=== PATIENT | male | born 1940 | race Caucasian/White ===

== ENCOUNTER 2018-03-06 07:20 | Outpatient (CLI) | payer MEDICARE, BC, SELFPAY ==
[2018-03-06 07:50] LABS: HCT 44.8 % (40.0-50.0); HGB 14.8 g/dL (13.5-17.5); Mean Corpuscular Hemoglobin 30.1 pg (27.0-33.0); Mean Corpuscular Volume 91.2 fL (80-95); Mean Platelet Volume 9.9 fL (8.0-11.0); Platelet Count 177 x1000/uL (130-400); RBC 4.91 m/cumm (4.50-6.00); RBC Distribution Width 13.8 % (11.8-14.1); White Blood Cell Count 6.44 k/cumm (4.4-10.8)
[2018-03-06 09:43] LABS: ALT 33 U/L (12-78); AST 25 U/L (15-37); Albumin 3.8 g/dL (3.4-5.0); Alkaline Phosphatase 68 U/L (46-116); Anion Gap 5.7 mmol/L (3-11); BUN 15 mg/dL (7-18); Bilirubin, Total 0.9 mg/dL (0.2-1.0); CO2 29.3 mmol/L (21.0-32.0); CREATININE 1.01 mg/dL (0.70-1.30); Calcium 8.9 mg/dL (8.5-10.1); Chloride 103 mmol/L (98-107); Cholesterol 148 mg/dL (50-200); Glucose 93 mg/dL (70-100); HDL Cholesterol 61 mg/dL (40-60); LDL CHOLESTEROL 77 mg/dL (<100); Potassium 4.2 mmol/L (3.5-5.1); Sodium 138 mmol/L (136-145); Total Protein 6.2 g/dL (6.4-8.2); Triglyceride 56 mg/dL (30-150)
== END 2018-03-06 07:40 ==
PROVIDERS: PCP Nurse Practitioner; Visit Provider Nurse Practitioner
DX: E78.5 Hyperlipidemia, unspecified (principal); M45.9 Ankylosing spondylitis of unspecified sites in spine
CPT/HCPCS: 36415; 80053; 80061; 83721; 85027

== ENCOUNTER 2019-04-20 08:59 | Outpatient (CLI) | payer MEDICARE, BC, SELFPAY ==
[2019-04-20 10:12] LABS: ALT 35 U/L (16-63); AST 25 U/L (15-37); Albumin 3.8 g/dL (3.4-5.0); Alkaline Phosphatase 79 U/L (46-116); Anion Gap 5.3 mmol/L (3-11); BUN 17 mg/dL (7-18); CO2 31.7 mmol/L (21.0-32.0); CREATININE 0.95 mg/dL (0.70-1.30); Calcium 9.1 mg/dL (8.5-10.1); Calculated LDL 174 mg/dL; Chloride 103 mmol/L (98-107); Cholesterol 248 mg/dL (<200); Glucose 91 mg/dL (74-106); HDL Cholesterol 58 mg/dL (40-60); Potassium 4.4 mmol/L (3.5-5.1); Sodium 140 mmol/L (136-145); Total Protein 6.7 g/dL (6.4-8.2); Triglyceride 83 mg/dL (<150)
== END 2019-04-20 09:19 ==
PROVIDERS: PCP Nurse Practitioner; Visit Provider Nurse Practitioner
DX: I10 Essential (primary) hypertension (principal); E78.5 Hyperlipidemia, unspecified
CPT/HCPCS: 36415; 80053; 80061

== ENCOUNTER 2019-09-26 18:51 | Emergency (ER) | payer MEDICARE, BC, SELFPAY ==
[2019-09-26 18:58] VITALS: BP 139/75; PULSE 92; RESP 20; TEMP 37.2; O2SAT 96
--- NOTE | 2019-09-26 19:30 | DI.RAD_ITS ---
EXAM: XR PORTABLE CHEST AP CLINICAL HISTORY: PUI, R/O pneumonia, viral illness TECHNIQUE: 2D digital imaging was performed. COMPARISON: No exams were available for comparison FINDINGS: MEDIASTINUM: Normal. HEART: Normal. PULMONARY VASCULATURE: Normal. LUNGS: Clear. PLEURAL SPACE: No pleural effusion or pneumothorax. BONE:Degenerative changes are present in the spine. OTHER FINDINGS:Normal. IMPRESSION: No acute pulmonary findings. DATA REPOSITORY: RADIATION DOSE DELIVERED:
--- NOTE | 2019-09-26 19:37 | ED.GENADUL_ITS ---
Discharge Plan Disposition Patient Disposition: HOME Condition: Stable Discharge Details Chief Complaint: Fever Clinical Impression: Tick bite Primary Care Provider: Valorie Jarvis ED Provider: Kenisha Chase Home Meds and New Rx's Prescriptions: New doxycycline hyclate 100 mg capsule 100 mg PO BID 10 Days Qty: 20 RF: 0 No Action Shingrix (PF) 50 mcg/0.5 mL suspension for reconstitution 50 mcg IM ONCE Qty: 1 RF: 1 multivitamin [Daily Vitamin] 1 EACH tablet 1 ea PO DAILY RF: 0 finasteride 5 mg tablet 5 mg PO DAILY RF: 0 indomethacin 25 mg capsule 25 mg PO TID PRN (Reason: pain) Qty: 90 RF: 3 lisinopril 10 mg tablet 10 mg PO DAILY Qty: 90 RF: 3 rosuvastatin [Crestor] 5 mg tablet 5 mg PO DAILY Qty: 90 RF: 3 sildenafil [Viagra] 50 mg tablet 50 mg PO DAILY PRN (Reason: sexual activity) Qty: 30 RF: 3 Discharge Instructions Instructions: Tick Bite (ED) Additional Instructions: Follow up with primary care provider in 3-5 days. Return to ED sooner if any worsening or concerns. Increase oral fluids. Please take Tylenol with food every 4-6 hours as needed for fever, pain and swelling. We did test for COVID-19 which is pending at this time. We do recommend that you quarantine for at least until you have a negative result for 3 to 5 days after symptoms have resolved. Am going to treat you for Lyme disease due to symptoms and history of multiple tick bites, and lab results. Stand Alone Forms: PENDING COVID-19 TESTING Referrals: Valorie Jarvis NP [Primary Care Provider] - Discharge Data Discharge Date/Time-TO BE ENTERED AT DEPARTURE: 09/26/19 21:55 Medical Decision Making 51-year-old male presents to the ED status post closed head injury followed by syncopal episode. Patient states 1 hour prior to arrival he was working with frontal, slammed the top of his head into a large branch, fell back to the ground states that everything went black unknown length of LOC. He presents alert and oriented x3, no focal neuro deficits noted. He states something just not right. He does have a history cardiac defibrillator, cardiomyopathy, congestive heart failure, diabetes, mitral regurgitation, PTSD and sleep apnea. Initial EKG obtained shows widened QRS in V1 V2 V3. Patient denies any chest pain, shortness of breath, does have pain with left lateral EOM. Does have a small abrasion noted to top of his head and a small hematoma surrounding. No palpable depressed skull fracture. 2117: At this time labs are as follows, WBC is 5.13, platelets 111, sodium 130, chloride 96, potassium 4.0, BUN 19, creatinine 1.01, AST 75, ALT 73 at this time differential diagnosis includes Lyme disease, COVID-19. Patient also shows signs of dehydration due to hyponatremia and low chloride. I will treat empirically for Lyme disease due to the patient's history of multiple tick bites, labs, and symptoms. Discussed home care with patient, medication, and follow-up. Verbalized understanding. Discussed strict return instructions. Patient given doxycycline 100 mg p.o. tablet in department prior to discharge. HPI General Mode of arrival: ambulatory . Date/Time Provider Initiated Documentation: 09/26/19 19:05 . Limitations to Documentation: no limitations . Information obtained by: patient . HPI Narrative: 51-year-old male presents to the ED status post closed head injury followed by syncopal episode. Patient states 1 hour prior to arrival he was working with frontal, slammed the top of his head into a large branch, fell back to the ground states that everything went black unknown length of LOC. He presents alert and oriented x3, no focal neuro deficits noted. He states something just not right. He does have a history cardiac defibrillator, cardiomyopathy, congestive heart failure, diabetes, mitral regurgitation, PTSD and sleep apnea. Initial EKG obtained shows widened QRS in V1 V2 V3. Patient denies any chest pain, shortness of breath, does have pain with left lateral EOM. Does have a small abrasion noted to top of his head and a small hematoma surrounding. No palpable depressed skull fracture. Related Data Home Medications Medication Instructions Recorded Confirmed multivitamin [Daily Vitamin] 1 ea PO DAILY 07/16/12 04/20/19 finasteride 5 mg tablet 5 mg PO DAILY 03/24/18 04/20/19 indomethacin 25 mg capsule 25 mg PO TID PRN #90 tab-cap 04/19/19 04/20/19 varicella-zoster gE-AS01B (PF) 50 50 mcg IM ONCE #1 each 04/20/19 04/20/19 mcg/0.5 mL IM susp, kit lisinopril 10 mg tablet 10 mg PO DAILY #90 tab 04/26/19 rosuvastatin 5 mg tablet 5 mg PO DAILY #90 tab-cap 04/26/19 sildenafil 50 mg tablet 50 mg PO DAILY PRN #30 tab-cap 05/17/19 doxycycline hyclate 100 mg PO BID 10 Days #20 cap 09/26/19 Previous Rx's Medication Instructions Recorded indomethacin 25 mg capsule 25 mg PO TID PRN #90 tab-cap 04/19/19 varicella-zoster gE-AS01B (PF) 50 50 mcg IM ONCE #1 each 04/20/19 mcg/0.5 mL IM susp, kit lisinopril 10 mg tablet 10 mg PO DAILY #90 tab 04/26/19 rosuvastatin 5 mg tablet 5 mg PO DAILY #90 tab-cap 04/26/19 sildenafil 50 mg tablet 50 mg PO DAILY PRN #30 tab-cap 05/17/19 doxycycline hyclate 100 mg PO BID 10 Days #20 cap 09/26/19 Allergies Allergy/AdvReac Type Severity Reaction Status Date / Time simvastatin AdvReac Intermediate leg pain Verified 09/26/19 19:06 General Stated Complaint: Fever MEL: 2 Review of Systems Narrative: Constitutional: Negative for weight loss, alert and oriented, well groomed, normal body habitus, appears comfortable. Reports fatigue, fever T-max 102, decreased appetite. HEENT: Denies trauma,blurry vision, nasal discharge, sore throat, trouble swallowing. Chest: Denies chest pain, palpitations, irregular rhythm, hypertension. Respiratory: Denies Shortness of breath, cough, hemoptysis. GI: Denies abdominal pain, diarrhea, constipation. Positive nausea 1 episode of emesis Friday night. : Denies dysuria, hematuria, flank pain, rectal bleeding. Reports decreased urination. Neuro: Denies dizziness, blurry vision, weakness, syncope,or facial numbness. Hematologic: Denies easy bruising, intolerance to heat or cold, hair loss. 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 Appears stated age. Normal body habitus. Head: Normocephalic, no trauma. Eyes: Pupils PERRLA, Red reflex noted, EOM's intact. Eyelids symmetrical without lesions, discharge, or swelling. ENT: Bilateral TM's WNL, External ear normal to inspection, no mastoid TTP, swelling, or erythema, Nasal turbinates WNL, no nasal discharge. Normal dentition, Posterior pharynx WNL, no exudate. Chest: RRR, Normal S1, S2, distal pulses intact. Resp: Lungs clear to auscultation bilaterally, no wheezes, rales, or rhonchi. Musculoskeletal: Normal gait, 5/5 strength to all four extremities. Skin: There is a few dry scab-like lesions noted to lower extremities, there is also a bulbar small approximately 3 mm blood blister noted to the right lateral neck, capillary refill less than 2 sec. Neurologic: Cranial nerves II-XII intact. Alert and oriented x 3. DTR's intact. Hematologic/Lymphatic: No ecchymosis, no lymphadenopathy. Course Vital Signs Vital signs: Vital Signs Temperature 37.2 C 09/26/19 18:58 Pulse 92 H 09/26/19 18:58 Respiratory Rate 20 09/26/19 18:58 Blood Pressure 139/75 09/26/19 18:58 Pulse Oximetry 96 09/26/19 18:58 Temperature 37.2 C 09/26/19 18:58 Temperature Source Oral 09/26/19 18:58 Pulse 92 H 09/26/19 18:58 Respiratory Rate 20 09/26/19 18:58 Respiratory Effort Non-Labored 09/26/19 19:06 Blood Pressure 139/75 09/26/19 18:58 Blood Pressure Position Sitting 09/26/19 18:58 Pulse Oximetry 96 09/26/19 18:58 Oxygen Delivery Method Room Air 09/26/19 18:58 Oxygen Flow Rate 0 09/26/19 18:58 Pain Level 0 09/26/19 18:58
[2019-09-26] MEDS: Normal Saline 1,000 ML 1000 ML IV (20:04)
[2019-09-26 20:06] LABS: Lactate 0.6 mmol/L (0.6-1.4)
[2019-09-26 20:09] LABS: Abs Immature Grans 0.01 k/cumm (0.0-0.09); Absolute Basophil Count 0.01 k/cumm (0.0-0.2); Absolute Eosinophil Count 0.02 k/cumm (0.0-0.7); Absolute Lymphocyte Count 0.29 k/cumm (1.2-3.4); Basophils % 0.2; Eosinophils % 0.4; HCT 40.5 % (40.0-50.0); HGB 13.9 g/dL (13.5-17.5); Immature Grans % 0.2 %; Lymphocytes % 5.7; Mean Corp. HGB Concentration 34.3 g/dL (32.0-36.0); Mean Corpuscular Hemoglobin 31.2 pg (27.0-33.0); Mean Corpuscular Volume 90.8 fL (80-95); Mean Platelet Volume 9.7 fL (8.0-11.0); Monocytes % 7.8; Neutrophils % 85.7; Platelet Count 111 x1000/uL (130-400); RBC 4.46 m/cumm (4.50-6.00); RBC Distribution Width 12.8 % (11.8-14.1); White Blood Cell Count 5.13 k/cumm (4.4-10.8)
[2019-09-26 20:27] LABS: ALT 73 U/L (16-63); AST 75 U/L (15-37); Albumin 3.4 g/dL (3.4-5.0); Alkaline Phosphatase 94 U/L (46-116); Anion Gap 10.2 mmol/L (3-11); BUN 19 mg/dL (7-18); Bilirubin, Total 0.7 mg/dL (0.2-1.0); CO2 23.8 mmol/L (21.0-32.0); CREATININE 1.01 mg/dL (0.70-1.30); Calcium 8.5 mg/dL (8.5-10.1); Chloride 96 mmol/L (98-107); Glucose 115 mg/dL (74-106); Magnesium 1.8 mg/dL (1.8-2.4); Sodium 130 mmol/L (136-145); Total Protein 6.5 g/dL (6.4-8.2)
--- NOTE | 2019-09-26 20:51 | DI.VRAD_ITS ---
PROCEDURE INFORMATION: Exam: XR Chest, 1 View Exam date and time: 09/26/2019 8:36 PM Age: 78 years old Clinical indication: Fever and other: Viral illness; Patient HX: R/O pneumonia, viral illness. PT being tested for covid and lyme TECHNIQUE: Imaging protocol: XR of the chest Views: 1 view. COMPARISON: No relevant prior studies available. FINDINGS: Lungs: Lungs are adequately inflated and symmetric. No focal consolidation or pulmonary edema. Pleural space: No pleural effusion. No pneumothorax. Heart/Mediastinum: Cardiomediastinal contours within normal limits. Vasculature: Vascular calcifications of the aortic arch with mild tortuosity of the descending thoracic aorta. Bones/joints: Moderate symmetric degenerative changes of the acromioclavicular joint. No acute osseous finding. IMPRESSION: No acute cardiopulmonary finding. Dictated and Authenticated by: Chi Kennedy MD. Ordering:QUIQUE De MD
[2019-09-26 20:54] VITALS: BP 142/65; PULSE 68; RESP 18; TEMP 37.7; O2SAT 96
[2019-09-26] MEDS: Doxycycline Hyclate 100 MG CAP PO (21:47)
[2019-09-26 21:57] VITALS: BP 145/63; PULSE 74; RESP 16; TEMP 37.4; O2SAT 97
[2019-09-28 12:09] LABS: Lyme Ab w Rflx to Lyme Confirm Negative (Negative)
[2019-09-28 12:27] LABS: COVID-19 RT-PCR Result NEGATIVE (Negative)
[2019-09-28 23:29] LABS: Anaplasma phagocytophilum Negative (Negative); B. miyamotoi PCR Negative (Negative); Babesia divergens/MO-1 Negative (Negative); Babesia duncani Negative (Negative); Babesia microti Negative (Negative); Ehrlichia chaffeensis Negative (Negative); Ehrlichia ewingii/canis Negative (Negative); Ehrlichia muris eauclairensis Negative (Negative)
== END 2019-09-26 21:55 | disposition home or self-care (01) ==
LOC: ER 21:42
PROVIDERS: Emergency Provider Registered Nurse Emergency; PCP Nurse Practitioner
DX: S10.96XA Insect bite of unspecified part of neck, initial encounter (principal); R50.9 Fever, unspecified; E86.0 Dehydration; Z11.59 Encounter for screening for other viral diseases
CPT/HCPCS: 36415; 80053; 87798; 96360; 99284; U0003; 71045; 83605; 83735; 85025; 86618

== ENCOUNTER 2019-10-18 01:48 | Outpatient (CLI) | payer MEDICARE, BC, SELFPAY ==
[2019-10-18 08:15] LABS: HCT 42.2 % (40.0-50.0); HGB 14.4 g/dL (13.5-17.5); Mean Corp. HGB Concentration 34.1 g/dL (32.0-36.0); Mean Corpuscular Hemoglobin 31.5 pg (27.0-33.0); Mean Corpuscular Volume 92.3 fL (80-95); Mean Platelet Volume 9.3 fL (8.0-11.0); Platelet Count 215 x1000/uL (130-400); RBC 4.57 m/cumm (4.50-6.00); RBC Distribution Width 13.1 % (11.8-14.1); White Blood Cell Count 5.02 k/cumm (4.4-10.8)
[2019-10-18 09:13] LABS: ALT 38 U/L (16-63); AST 27 U/L (15-37); Albumin 3.8 g/dL (3.4-5.0); Alkaline Phosphatase 97 U/L (46-116); Anion Gap 8.6 mmol/L (3-11); BUN 15 mg/dL (7-18); Bilirubin, Total 0.8 mg/dL (0.2-1.0); CO2 25.4 mmol/L (21.0-32.0); CREATININE 0.92 mg/dL (0.70-1.30); Calculated LDL 82 mg/dL (<100); Chloride 103 mmol/L (98-107); Cholesterol 154 mg/dL (<200); Glucose 98 mg/dL (74-106); HDL Cholesterol 62 mg/dL (40-60); Potassium 4.5 mmol/L (3.5-5.1); Sodium 137 mmol/L (136-145); Total Protein 6.3 g/dL (6.4-8.2); Triglyceride 52 mg/dL (<150)
== END 2019-10-18 02:08 ==
PROVIDERS: PCP Nurse Practitioner; Visit Provider Nurse Practitioner
DX: E78.5 Hyperlipidemia, unspecified (principal); I10 Essential (primary) hypertension; M45.9 Ankylosing spondylitis of unspecified sites in spine; R79.9 Abnormal finding of blood chemistry, unspecified
CPT/HCPCS: 36415; 80053; 80061; 85027

== ENCOUNTER 2020-05-17 02:21 | Outpatient (CLI) | payer MEDICARE, BC, SELFPAY ==
--- NOTE | 2020-05-17 07:28 | DI.US_ITS ---
APPROVED REPORT EXAM: Comprehensive 2D, Doppler, and color-flow Echocardiogram Patient Location: Out-Patient Personal Protection Specialist: Agustina Jean RDCS (AE) Indications: Abnormal EKG, Hypertension Other Information Study Quality: Adequate Conclusion Left Ventricle : The left ventricle is normal size. The left ventricular systolic function is normal. There is normal left ventricular wall thickness. There is normal LV segmental wall motion. The left ventricular diastolic function is normal. LVEF is 55-60%. Right Ventricle : The right ventricle is normal size. The right ventricular systolic function is norm al. The RVSP is 23.5 mmHg. Atria : Left atrium is borderline dilated. The right atrium size is normal. Mitral Valve : Mild mitral annular calcification. Trace to mild mitral regurgitation. No evidence of mitral valve stenosis. Great Vessels : The aortic root is normal in size. The ascending aorta is mildly dilated. Due to poor image quality, the IVC could not be assessed. Please see remainder of study for further details. Wall motion Left Ventricle The left ventricle is normal size. The left ventricular systolic function is normal. There is normal left ventricular wall thickness. There is normal LV segmental wall motion. The left ventricular diast olic function is normal. There is no ventricular septal defect visualized. LVEF is 55-60%. Right Ventricle The right ventricle is normal size. The right ventricular systolic function is normal. The RVSP is 23 .5 mmHg. Atria Left atrium is borderline dilated. The right atrium size is normal. The interatrial septum is intact with no evidence for an atrial septal defect. Aortic Valve The aortic valve is normal in structure. Aortic valve is trileaflet. There is no aortic valvular sten osis. No aortic regurgitation is present. Mitral Valve Mild mitral annular calcification. No evidence of mitral valve stenosis. Trace to mild mitral regurgi tation. Tricuspid Valve The tricuspid valve is normal in structure. There is no tricuspid valve stenosis. Trace tricuspid reg urgitation. Pulmonic Valve The pulmonary valve is normal in structure. There is no pulmonic valvular stenosis. There is no pulmo alfreda valvular regurgitation. Great Vessels The aortic root is normal in size. The ascending aorta is mildly dilated. Due to poor image quality, the IVC could not be assessed. Pericardium There is no pericardial effusion. 2D Dimensions IVSD d PLAX 0.88 cm M: 0.6-1.2 LV Vol A2C d MOD 110.2 mL LVPW d PLAX 0.87 cm M: 0.6 - 1.2 LV Vol A4C d MOD 91.9 mL LVID d PLAX 4.43 cm M: 4.2 - 5.8 LA vol/ BSA A2C s A-L 31.0 mL/m2 LVDs 3.10 cm M: 2.5 - 4.0 LA vol/ BSA A4C s A-L 29.5 mL/m2 Ao Root d 3.12 cm M: 3.1 - 3.7 LA Vol/ BSA Biplane s A-L 31.3 mL/m2 RA Area A4C 17.49 cm2 LA Area A4C s MOD 19.55 cm2 RA Vol/ BSA A4C s A-L 24.0 mL/m2 LA Area A2C s MOD 19.40 cm2 Ao Asc Diam d 3.58 cm M: 2.6 - 3.4 LV EF A4C MOD 58.1 % LV EF Teichholz 57.0 % LV EF A2C MOD 55.5 % LVEF (Barajas's) 56.64 % M: 52 - 72 LV EF Biplane MOD 56.6 % LV Volume 76.09 mL M: 62 - 150 SV 57.19 mL LV Volume Index 38.62 mL/m2 M: 34 - 74 SV Index 29.00 mL/m2 LV Vol Biplane MOD 101.0 mL FS 29.70 % M-Mode TAPSE 2.77 cm (M/F) >1.7 LV Diastology MV E' medial 0.076 (>0.07 m/s) E/A Ratio 0.9 LV E/e MED 8.70 (<14) MV E Vmax 0.66 (0.4-1.3 m/s) MV E' lateral 0.094 (>0.1 m/s) MV A Vmax 0.75 (0.4-1.3 m/s) LV E/e LAT 7.00 (<14) MV E/A Ratio 0.86 MV E/E' medial 8.71 MV E/E' lateral 7.01 Aortic Valve LVOT Area 3.26 cm2 AoV Area Vmax 2.72 cm2 LVOT Vmax 1.29 m/s AoV Area/ BSA (Vmax) 1.38 cm2/m2 LVOT Mean Manuelito. 0.73 m/s DELFINA Mean Manuelito. 2.42 cm2 LVOT Peak Grad 6.7 mmHg DELFINA Mean Manuelito. Index 1.23 cm2/m2 LVOT Mean Grad 2.7 mmHg LVOT VTI 0.274 m LVOT Diam s 2.00 cm AoV Vmax 1.55 m/s Velocity Ratio 0.83 AoV Mean Manuelito. 0.99 m/s AoV Peak Grad 9.6 mmHg LVOT SV 89.32 mL AoV Mean Grad 4.5 mmHg AoV VTI 0.269 m AoV Area VTI 3.32 cm2 AoV Area/ BSA (VTI) 1.68 cm/m2 Mitral Valve MV DT 288 (160-240 msec) MV PHT 84 msec MV Area PHT 2.63 cm2 Pulmonary Valve PV Vmax 1.11 (0.5-1.5 m/s) RVOT Peak Gr. 2.95 mmHg PV Peak Grad 4.9 mmHg RVOT Mean Gr. 1.50 mmHg PV Mean Grad 2.4 mmHg RVOT VTI 0.180 m PV VTI 0.210 m RVOT Vmax 0.86 m/s Tricuspid Valve TR Peak Grad 20.4 mmHg TR Vmax 2.26 m/s RA Pressure 3.00 mmHg RVSP (TR) 23.5 mmHg
== END 2020-05-17 02:22 ==
LOC: DI 02:21
PROVIDERS: PCP Nurse Practitioner; Visit Provider Nurse Practitioner
DX: I10 Essential (primary) hypertension (principal); I34.0 Nonrheumatic mitral (valve) insufficiency
CPT/HCPCS: 93306

== ENCOUNTER 2020-09-18 03:07 | Outpatient (CLI) | payer MEDICARE, BC, SELFPAY ==
[2020-09-18 09:39] LABS: ALT 29 U/L (16-63); AST 22 U/L (15-37); Albumin 3.4 g/dL (3.4-5.0); Alkaline Phosphatase 80 U/L (46-116); Anion Gap 8.7 mmol/L (3-11); BUN 17 mg/dL (7-18); Bilirubin, Total 0.7 mg/dL (0.2-1.0); CO2 27.3 mmol/L (21.0-32.0); CREATININE 0.9 mg/dL (0.70-1.30); Calculated LDL 69 mg/dL (<100); Chloride 102 mmol/L (98-107); Cholesterol 131 mg/dL (<200); Glucose 89 mg/dL (74-106); HDL Cholesterol 49 mg/dL (40-60); Potassium 4.5 mmol/L (3.5-5.1); Sodium 138 mmol/L (136-145); Total Protein 6.1 g/dL (6.4-8.2); Triglyceride 66 mg/dL (<150)
== END 2020-09-18 03:08 | disposition home or self-care (01) ==
LOC: LBO 03:08
PROVIDERS: PCP Nurse Practitioner; Visit Provider Nurse Practitioner
DX: I10 Essential (primary) hypertension (principal); E78.5 Hyperlipidemia, unspecified
CPT/HCPCS: 36415; 80053; 80061

== ENCOUNTER 2020-12-22 03:13 | Outpatient (CLI) | payer MEDICARE, BC, SELFPAY ==
--- NOTE | 2020-12-22 | DI.DEXA_ITS ---
Exam(s) XR DEXA BONE DENSITY W/WO YOBANY EXAM: XR DEXA BONE DENSITY W/WO YOBANY CLINICAL HISTORY: OSTEOPOROSIS,M81.0,ENCOUNTER FOR MEDICATION MONITORING,Z51.81,POLYMYALGIA TECHNIQUE: COMPARISON: No exams were available for comparison FINDINGS: Lateral Spine Image: Unremarkable. No compression deformities identified. Left hip: Total T-Score: -1.7. This compares to -1.3 on the prior examination. Total Z-Score: -0.7. T- and Z-scores: Findings consistent with osteopenia. Lumbar Spine: Total T-Score: 0.1. This compares to 0.4 on the prior examination. Total Z-Score: 1.3. T- and Z-scores: Within normal limits. IMPRESSION: Osteopenia in the left hip.
== END 2020-12-22 03:33 ==
PROVIDERS: PCP Nurse Practitioner; Visit Provider Internal Medicine
DX: M35.3 Polymyalgia rheumatica (principal); M25.551 Pain in right hip; M25.552 Pain in left hip; M81.0 Age-related osteoporosis without current pathological fracture; Z51.81 Encounter for therapeutic drug level monitoring; M85.88 Other specified disorders of bone density and structure, other site
CPT/HCPCS: 77080

== ENCOUNTER 2021-09-11 01:39 | Outpatient (CLI) | payer MEDICARE, BC, SELFPAY ==
[2021-09-11 07:53] LABS: Abs Immature Grans 0.03 10^3/uL (0.0-0.06); Absolute Basophil Count 0.04 10^3/uL (0.0-0.2); Absolute Eosinophil Count 0.16 10^3/uL (0.0-0.7); Absolute Lymphocyte Count 1.42 10^3/uL (1.2-3.4); Absolute Monocyte Count 0.41 10^3/uL (0.1-0.8); Absolute Neutrophil Count 3.51 10^3/uL (1.2-6.7); Basophils % 0.7; Eosinophils % 2.9; HCT 46.3 % (40.0-50.0); Immature Grans % 0.5; Lymphocytes % 25.5; MCH 31.4 pg (27.0-33.0); MCHC 32.4 % (32.0-36.0); MCV 97 fL (80-95); MPV 9.4 fL (8.0-11.0); Monocytes % 7.4; Platelet Count 168 10^3/uL (130-400); RBC 4.78 10^6/uL (4.36-5.78); RDW 12.5 % (11.8-14.1); RDW-SD 44.9 fL; WBC 5.57 10^3/uL (4.4-10.8)
[2021-09-11 08:38] LABS: ALT 26 U/L (16-63); AST 18 U/L (15-37); Albumin 3.9 g/dL (3.4-5.0); Alkaline Phosphatase 73 U/L (46-116); Anion Gap 7.5 mmol/L (3-11); BUN 18 mg/dL (7-18); CO2 29.5 mmol/L (21.0-32.0); CREATININE 0.8 mg/dL (0.70-1.30); Calcium 8.8 mg/dL (8.5-10.1); Calculated LDL 89 mg/dL (<100); Chloride 103 mmol/L (98-107); Cholesterol 167 mg/dL (<200); Glucose 86 mg/dL (74-106); HDL Cholesterol 62 mg/dL (40-60); Potassium 4.2 mmol/L (3.5-5.1); Sodium 140 mmol/L (136-145); Total Protein 6.4 g/dL (6.4-8.2); Triglyceride 82 mg/dL (<150)
== END 2021-09-11 01:40 | disposition home or self-care (01) ==
LOC: LBO 01:39
PROVIDERS: PCP Nurse Practitioner; Visit Provider Nurse Practitioner
DX: E78.5 Hyperlipidemia, unspecified (principal); I10 Essential (primary) hypertension; J45.909 Unspecified asthma, uncomplicated; M45.9 Ankylosing spondylitis of unspecified sites in spine; R79.9 Abnormal finding of blood chemistry, unspecified
CPT/HCPCS: 36415; 80053; 80061; 85025

== ENCOUNTER 2022-09-24 12:38 | Outpatient (REF) | payer MEDICARE, BC, SELFPAY ==
[2022-09-24 14:47] LABS: Abs Immature Grans 0.03 10^3/uL (0.0-0.06); Absolute Basophil Count 0.05 10^3/uL (0.0-0.2); Absolute Lymphocyte Count 1.27 10^3/uL (1.2-3.4); Absolute Monocyte Count 0.46 10^3/uL (0.1-0.8); Basophils % 0.7; Eosinophils % 1.3; HCT 43.7 % (40.0-50.0); HGB 14.8 g/dL (13.5-17.5); Immature Grans % 0.4; Lymphocytes % 17.1; MCH 31.4 pg (27.0-33.0); MCHC 33.9 % (32.0-36.0); MCV 93 fL (80-95); Monocytes % 6.2; Neutrophils % 74.3; Platelet Count 191 10^3/uL (130-400); RBC 4.72 10^6/uL (4.36-5.78); RDW 12.3 % (11.8-14.1); RDW-SD 42.2 fL; WBC 7.41 10^3/uL (4.4-10.8)
[2022-09-24 15:03] LABS: TSH (W/Ref FT4) 1.26 uIU/mL (0.36-3.74)
[2022-09-25 12:30] LABS: Lyme Ab w Rflx to Lyme Confirm Positive (Negative)
[2022-09-25 16:10] LABS: Lyme IgG Ab Negative (Negative); Lyme IgM Ab Negative (Negative)
== END 2022-09-24 12:39 | disposition home or self-care (01) ==
LOC: LBN 12:38
PROVIDERS: PCP Nurse Practitioner; Visit Provider Nurse Practitioner Family
DX: T14.8XXA Other injury of unspecified body region, initial encounter (principal); R53.83 Other fatigue; W57.XXXA Bitten or stung by nonvenomous insect and other nonvenomous arthropods, initial encounter
CPT/HCPCS: 86617; 84443; 85025; 86618

== ENCOUNTER 2022-09-25 02:49 | Outpatient (CLI) | payer MEDICARE, BC, SELFPAY ==
[2022-09-25 08:11] LABS: Abs Immature Grans 0.05 10^3/uL (0.0-0.06); Absolute Basophil Count 0.05 10^3/uL (0.0-0.2); Absolute Eosinophil Count 0.13 10^3/uL (0.0-0.7); Absolute Lymphocyte Count 1.36 10^3/uL (1.2-3.4); Absolute Monocyte Count 0.39 10^3/uL (0.1-0.8); Basophils % 0.8; Eosinophils % 2.2; HCT 44.4 % (40.0-50.0); HGB 14.9 g/dL (13.5-17.5); Immature Grans % 0.8; Lymphocytes % 22.7; MCH 31.9 pg (27.0-33.0); MCHC 33.6 % (32.0-36.0); MCV 95 fL (80-95); MPV 9.3 fL (8.0-11.0); Monocytes % 6.5; Platelet Count 173 10^3/uL (130-400); RBC 4.67 10^6/uL (4.36-5.78); RDW 12.7 % (11.8-14.1); RDW-SD 44.2 fL; WBC 5.98 10^3/uL (4.4-10.8)
[2022-09-25 08:41] LABS: ALT 32 U/L (16-63); AST 23 U/L (15-37); Albumin 3.6 g/dL (3.4-5.0); Alkaline Phosphatase 68 U/L (46-116); Anion Gap 5.6 mmol/L (3-11); BUN 17 mg/dL (7-18); Bilirubin, Total 0.8 mg/dL (0.2-1.0); CO2 30.4 mmol/L (21.0-32.0); CREATININE 0.9 mg/dL (0.70-1.30); Calculated LDL 88 mg/dL (<100); Chloride 106 mmol/L (98-107); Cholesterol 160 mg/dL (<200); Estimated GFR 86.34 (mL/min/1.73m2); Glucose 96 mg/dL (74-106); HDL Cholesterol 57 mg/dL (40-60); Potassium 4.5 mmol/L (3.5-5.1); Sodium 142 mmol/L (136-145); Total Protein 6.6 g/dL (6.4-8.2); Triglyceride 76 mg/dL (<150)
[2022-09-25 18:09] LABS: PSA, Screening 0.2 ng/mL (<=6.5)
== END 2022-09-25 02:50 | disposition home or self-care (01) ==
LOC: LBO 02:49
PROVIDERS: PCP Nurse Practitioner; Visit Provider Nurse Practitioner
DX: E78.5 Hyperlipidemia, unspecified (principal); I10 Essential (primary) hypertension; N40.0 Benign prostatic hyperplasia without lower urinary tract symptoms; Z12.5 Encounter for screening for malignant neoplasm of prostate
CPT/HCPCS: 36415; 80053; 80061; 84153; 85025

== ENCOUNTER → 2023-03-21 00:17 | Outpatient (CLI) | payer MEDICARE, BC, SELFPAY ==
--- NOTE | 2023-03-21 11:00 | DI.DEXA_ITS ---
Exam(s) XR DEXA BONE DENSITY W/WO YOBANY EXAM: XR DEXA BONE DENSITY W/WO YOBANY CLINICAL HISTORY: PMR, M35.3, ANKYLOSING SPONDYLITIS, M45.9, MED MONITORING, Z51.81, TECHNIQUE: [employer] C densitometer analysis of left hip, lumbar spine and left forearm. Lat eral survey image of the thoracic and lumbar spine. COMPARISON: DX DEXA BONE DENSITY WITH YOBANY from 11/21/2015 CR XR DEXA BONE DENSITY W/WO YOBANY from 12/22/2020 DEXA 2009 FINDINGS: Lateral view of the thoracic and lumbar spine shows no evidence of compression fractures. Bone mineral density measurements of the lumbar spine correspond to a total T-score of -0.4, in the normal range. This represents a 4.9 percent decrease from 2020 and a 7.1 percent decrease compared w ith 2008. Bone mineral density measurements of the left hip correspond to a total T-score of -1.7. This is un changed from 2020. This represents an 8.5 percent decrease compared to 2008.. The femoral neck T-sc ore is -2.5, the borderline of osteoporosis.. Theleft forearm bone mineral density measurements correspond to a T-score of the distal 3rd of -2.9, in the osteoporotic range. This is not significantly changed from 2020 represents an 8.0 Percent de crease from 2015. Forearm was not analyzed in 2008. . IMPRESSION: Normal oral density of the lumbar spine. Borderline osteoporosis of the hip. Osteoporosis of the fo rearm.
== END ==
PROVIDERS: PCP Nurse Practitioner; Visit Provider Internal Medicine
DX: M81.0 Age-related osteoporosis without current pathological fracture (principal); Z13.820 Encounter for screening for osteoporosis
CPT/HCPCS: 77080

== ENCOUNTER 2023-11-18 11:25 | Outpatient (CLI) | payer MEDICARE, BC, SELFPAY ==
--- NOTE | 2023-11-18 | DI.RAD_ITS ---
Exam(s) XR CHEST 2V PA LATERAL EXAM: XR CHEST 2V PA LATERAL CLINICAL HISTORY: cough, R05.9 TECHNIQUE: 2D digital imaging was performed of the chest. Two images were obtained. PA and lateral views were obtained. COMPARISON: CR,XR XR PORTABLE CHEST AP from 09/26/2019 FINDINGS: MEDIASTINUM: Normal. HEART: Normal. PULMONARY VASCULATURE: Normal. LUNGS: Clear. PLEURAL SPACE: No pleural effusion or pneumothorax. BONE:Within normal limits for the patient's age. OTHER FINDINGS:Normal. IMPRESSION: No acute pulmonary findings. DATA REPOSITORY: RADIATION DOSE DELIVERED:
== END 2023-11-18 11:45 ==
LOC: DI 11:26
PROVIDERS: PCP Nurse Practitioner; Visit Provider Nurse Practitioner Family
DX: R05.9 Cough, unspecified (principal)
CPT/HCPCS: 71046

== ENCOUNTER 2023-11-23 11:29 | Emergency (ER) | payer MEDICARE, BC, SELFPAY ==
[2023-11-23 11:38] VITALS: BP 125/62; PULSE 69; RESP 15; TEMP 37.1; O2SAT 94
--- NOTE | 2023-11-23 12:15 | DI.RAD_ITS ---
Exam(s) XR CHEST 2V PA LATERAL EXAM: XR CHEST 2V PA LATERAL CLINICAL HISTORY: shortness of breath TECHNIQUE: 2D digital imaging was performed of the chest. Two images were obtained. PA and lateral views were obtained. COMPARISON: CR XR CHEST 2V PA LATERAL from 11/18/2023 FINDINGS: MEDIASTINUM: Normal. HEART: Normal. PULMONARY VASCULATURE: Normal. LUNGS: Clear. PLEURAL SPACE: No pleural effusion or pneumothorax. BONE:Within normal limits for the patient's age. OTHER FINDINGS:Normal. IMPRESSION: No acute pulmonary findings. DATA REPOSITORY: RADIATION DOSE DELIVERED:
[2023-11-23] MEDS: predniSONE 20 MG TAB 40 MG PO (12:54)
[2023-11-23] MEDS: Albuterol/Ipratropium 3 ML UPD VIAL UPD (12:54)
--- NOTE | 2023-11-23 13:22 | DI.VRAD_ITS ---
PROCEDURE INFORMATION: Exam: XR Chest Exam date and time: 11/23/2023 12:54 PM Age: 82 years old Clinical indication: Shortness of breath TECHNIQUE: Imaging protocol: Radiologic exam of the chest. Views: 2 views. COMPARISON: CR XR CHEST 2V PA LATERAL 11/18/2023 11:04 AM FINDINGS: Lungs: Unremarkable. No consolidation. Pleural spaces: Unremarkable. No pleural effusion. No pneumothorax. Heart/Mediastinum: Unremarkable. No cardiomegaly. Bones/joints: Unremarkable. Gastrointestinal tract: Gastrointestinal: Small amount of air the bowel in the upper portion of the abdomen. IMPRESSION: No acute findings. Dictated and Authenticated by: Walker Cross MD. Ordering:LORENOZ Blue MD
--- NOTE | 2023-11-23 13:45 | W.ED.GENAD ---
Discharge Plan Disposition Patient Disposition: Home Discharge Details Clinical Impression: Bronchitis Primary Care Provider: Valorie Jarvis ED Provider: Su Cartagena Home Meds and New Rx's Prescriptions: New doxycycline hyclate 100 mg capsule 100 mg PO BID Qty: 14 0RF prednisone 20 mg tablet 40 mg PO DAILY Qty: 8 0RF Continued sildenafil [Viagra] 50 mg tablet 50 mg PO DAILY PRN (Reason: sexual activity) Qty: 30 3RF multivitamin [Daily Vitamin] 1 EACH tablet 1 ea PO DAILY finasteride 5 mg tablet 5 mg PO DAILY Patient Comments: Francis Mathew MD urology [facility] [place] note 03/24/18 [facility] acetaminophen [Tylenol Extra Strength] 500 mg tablet See Rx Instructions PO TID Rx Instructions: 500-1000 PO three times a day; tumeric 1,000 mg PO TID alendronate 35 mg tablet 35 mg PO QWEEK lisinopril 20 mg tablet See Rx Instructions .ROUTE .COMPLEX Qty: 90 3RF Dose Instruction: TAKE 1 TABLET DAILY Rx Instructions: TAKE 1 TABLET DAILY lisinopril 10 mg tablet 10 mg PO DAILY Qty: 90 3RF Rx Instructions: Take along with 20mg tabs for a total of 30mg daily. rosuvastatin [Crestor] 5 mg tablet 5 mg PO DAILY Qty: 90 3RF hydrochlorothiazide 25 mg tablet 25 mg PO DAILY Discharge Instructions Instructions: Acute bronchitis Additional Instructions: take prednisone as prescribed use albuterol 2 puffs every 4-6 hours as needed for cough wheeze and shortness take antibiotic as prescribed recheck every 4-6 hours as needed for cough, wheeze, shortness of breath Referrals: Valorie Jarvis, JOSUE [Primary Care Provider] - [facility] General Date/Time Provider Initiated Documentation: 11/23/23 12:17. HPI Narrative: This 82-year-old male presents with cough for the past 2 weeks. He has been taking benzonatate without relief in symptoms. He states he did have an x-ray and assessment on the . He denies any known sick contacts. Denies any significant shortness of breath or chest pain. He states the cough is keeping him up at night. Related Data Home Medications ?Medication ?Instructions ?Recorded ?Confirmed multivitamin (Daily Vitamin tablet) 1 ea PO DAILY 07/16/12 11/23/23 finasteride 5 mg tablet 5 mg PO DAILY 03/24/18 11/23/23 acetaminophen 500 mg tablet See Rx Instructions PO TID 09/22/20 11/23/23 (Tylenol Extra Strength) tumeric 1,000 mg PO TID 09/22/20 11/23/23 alendronate 35 mg tablet 35 mg PO QWEEK 08/31/21 11/23/23 sildenafil 50 mg tablet (Viagra) 50 mg PO DAILY PRN sexual activity 06/17/22 11/23/23 #30 tab-caps lisinopril 20 mg tablet See Rx Instructions .Route 04/30/23 11/23/23 .COMPLEX #90 tabs lisinopril 10 mg tablet 10 mg PO DAILY #90 tabs 05/05/23 11/23/23 rosuvastatin 5 mg tablet (Crestor) 5 mg PO DAILY #90 tab-caps 05/11/23 11/23/23 doxycycline hyclate 100 mg capsule 100 mg PO BID #14 caps 11/23/23 hydrochlorothiazide 25 mg tablet 25 mg PO DAILY 11/23/23 11/23/23 prednisone 20 mg tablet 40 mg (2 x 20 mg) PO DAILY #8 tabs 11/23/23 Previous Rx's ?Medication ?Instructions ?Recorded sildenafil 50 mg tablet (Viagra) 50 mg PO DAILY PRN sexual activity 06/17/22 #30 tab-caps lisinopril 20 mg tablet See Rx Instructions .Route 04/30/23 .COMPLEX #90 tabs lisinopril 10 mg tablet 10 mg PO DAILY #90 tabs 05/05/23 rosuvastatin 5 mg tablet (Crestor) 5 mg PO DAILY #90 tab-caps 05/11/23 doxycycline hyclate 100 mg capsule 100 mg PO BID #14 caps 11/23/23 prednisone 20 mg tablet 40 mg (2 x 20 mg) PO DAILY #8 tabs 11/23/23 Allergies Allergy/AdvReac Type Severity Reaction Status Date / Time tree nut Allergy Mild Itching Unverified 11/23/23 11:42 simvastatin AdvReac Intermediate leg pain Verified 11/23/23 11:42 General Stated Complaint: Sorethroat MEL: 4 Exam Narrative Exam Narrative: Alert and oriented 82-year-old male in no acute distress, lungs with rhonchi, no respiratory distress, cardiac rhythm regular, alert and oriented x 4, no peripheral edema, neurovascularly intact, no calf swelling or tenderness Course Vital Signs Vital signs: Vital Signs Temperature 37.1 C 11/23/23 11:38 Pulse 69 11/23/23 11:38 Respiratory Rate 15 11/23/23 11:38 Blood Pressure 125/62 11/23/23 11:38 Pulse Oximetry 94 11/23/23 11:38 Temperature 37.1 C 11/23/23 11:38 Temperature Source Tympanic 11/23/23 11:38 Pulse 69 11/23/23 11:38 Respiratory Rate 15 11/23/23 11:38 Blood Pressure 125/62 11/23/23 11:38 Blood Pressure Position Sitting 11/23/23 11:38 Pulse Oximetry 94 11/23/23 11:38 Oxygen Delivery Method Room Air 11/23/23 11:38 Oxygen Flow Rate 0 11/23/23 11:38 Pain Level 2 11/23/23 11:38 Lab/Test Results Lab/Test Results: 11/23/23 12:10 Tonsil - Right Group A Streptococcus Culture - Pending POC Strep Test-RUPALI(Rapid) Start: 11/23/23 12:50 Freq: .Rapid Strep Test Status: Active Protocol: Document 11/23/23 12:51 N.[email or web address] (Rec: 11/23/23 12:51 [email or web address] [id number]) Strep test-RUPALI(Rapid)-POC POC-Strep test-RUPALI (Rapid) Negative POC-Strep test-RUPALI (Rapid) Negative Medical Decision Making 82-year-old male presenting with upper respiratory symptoms and persistent cough for the next 2 weeks. Chest x-ray was ordered for evaluation which does not show evidence of acute abnormality interpretation per radiology interpretation my review. Prednisone and albuterol for ordered with some relief of symptoms. Patient will also be placed on doxycycline given longevity of symptoms for 13 days with worsening symptoms in the presence of rhonchi. He does have a history of rheumatoid arthritis and is immunosuppressed. Return precautions reviewed and recheck in 48 hours recommended Quality:SDOH Health Related Social Needs: No Data to Display PFSH All Active Problems (Updated 11/23/23 @ 13:49 by CESAR Garza) Bronchitis (Acute) Greater trochanteric pain syndrome (Acute ~03/2022) Bilateral hip pain (Acute ~04/2021) Unspecified disorder of calcium metabolism (Acute) Age-related osteoporosis without current pathological fracture (Acute) Polymyalgia rheumatica (Acute) 09/29/20-[facility] [place]um note, chronic bilateral low back pain without sciatica, bilateral hip pain. Chris Maravilla MD Chronic pain of both knees (Acute) 09/22/20- Dr. Maravilla, [facility] [place] Rheum Chronic pain of both shoulders (Acute) 09/22/20- Dr. Maravilla,[facility] [place] [facility] Pain in both hands (Acute) 09/22/20- Dr. Maravilla, [facility] [place] Rheum Osteoarthritis of both knees (Acute) 09/21/20- Dr. Maravilla, [facility] [place] Rheum Family history of heart disease (Acute) Abnormal blood chemistry (Acute) Cataract (Chronic) Unilateral inguinal hernia (Acute 07/29/12) left Sensorineural hearing loss, bilateral (Acute 07/28/12) Other and unspecified hyperlipidemia (Chronic 07/28/12) FRS 18%; PCEq 20.7%; LDL baseline 127 Male erectile disorder (Acute 04/08/13) BPH w/o urinary obs/LUTS (Chronic 08/13/11) Essential hypertension (Chronic 01/01/13) BPH NOS w ur obs/LUTS (Chronic 08/13/11) Ankylosing spondylitis (Chronic 07/28/12) Medical History (Updated 11/23/23 @ 13:49 by CESAR Garza) Osteopenia (07/29/12) 2020 Dexa T score -1.7 DX [facility] [place];DEXA 2008 T -1.2 hip ; -1.6 spine Frax Fx risk 6.4% major, 1.5% hip DEXA 11/2015 T 0.4spine, -2.2 femoral neck, hip -1.3 Frax 10.2% major osteop Frax 10% major osteo, 4%hip P: stop alendronate, recheck DEXA in 2018 Family History (Updated 06/12/21 @ 14:14 by Alyce Moe RN) Mother Cancer Breast Sister Cancer Breast Father Heart disease CHF Social History (Updated 06/17/22 @ 11:34 by Mariel Carranza LPN) Smoking/Tobacco Use Status: Never Second Hand Exposure: No Smoking risk assessment performed?: Yes Alcohol Intake: current Alcohol Intake frequency: a few times a month Alcohol type: beer and wine Drug use: Never Substance use type: does not use Counseling given: No (N/A) Adopted: No Caregiver/Support person: No Foster care: No Household members: spouse Housing: house Number of Children: 2 number of grandchildren: 4 Communication Needs: Hard of Hearing and Corrective Lenses Education Level: college Do you need help understanding health information?: Never current occupation: Retired Pets and animals: No Do you think of yourself as: straight/heterosexual Current gender identity: male What is your relationship status?: How often do you talk on the phone with friends or family?: once per week Do you belong to any clubs or organized social groups?: yes Panel score (0-1 are the most socially isolated patients): 2 What type of physical activity do you participate in: other Details: Xcountry skiing, down hill skiing, snow shoeing, gym, hiking Duration: 45-60 minutes/day Frequency: 5-6 times per week Dione/Buddhism: Pentecostal Special dione needs: No Seatbelt use: always Helmet use: Yes Helmet use: sometimes Drive intox or ride w/intox auto crane driver: No Working smoke detector in home: Yes Fire extinguisher in home: Yes Carbon monox detector in home: No Do you feel safe at home: Yes Do you feel safe in your relationship?: Yes Victim of physical abuse: No Victim of emotional abuse: No
[2023-11-23 14:10] VITALS: BP 125/62; PULSE 69; RESP 15; TEMP 37.1; O2SAT 94
[2023-11-23] MEDS: Inhaler, Assist Device 1 EACH MC (14:10)
[2023-11-23] MEDS: Albuterol HFA 8 GM 60 PUFF INH IH (14:10)
[2023-11-23 14:28] VITALS: BP 125/62; PULSE 69; RESP 15; TEMP 37.1; O2SAT 94
== END 2023-11-23 14:10 | disposition home or self-care (01) ==
PROVIDERS: Emergency Provider Physician Assistant; PCP Nurse Practitioner
DX: J40 Bronchitis, not specified as acute or chronic (principal); R05.1 Acute cough
CPT/HCPCS: 87880; 94640; 99283; 71046; 87081; J7512; J7620

== ENCOUNTER 2023-11-26 03:11 | Outpatient (CLI) | payer MEDICARE, BC, SELFPAY ==
[2023-11-26 08:24] LABS: ALT 36 U/L (16-63); AST 22 U/L (15-37); Albumin 3.5 g/dL (3.4-5.0); Alkaline Phosphatase 79 U/L (46-116); Anion Gap 7.9 mmol/L (3-11); BUN 24 mg/dL (7-18); Bilirubin, Total 0.67 mg/dL (0.2-1.0); CO2 28.1 mmol/L (21.0-32.0); CREATININE 0.9 mg/dL (0.70-1.30); Calcium 9.4 mg/dL (8.5-10.1); Calculated LDL 77 mg/dL (<100); Chloride 102 mmol/L (98-107); Cholesterol 160 mg/dL (<200); Glucose 101 mg/dL (74-106); HDL Cholesterol 69 mg/dL (40-60); Potassium 4.4 mmol/L (3.5-5.1); Sodium 138 mmol/L (136-145); Total Protein 6.9 g/dL (6.4-8.2); Triglyceride 70 mg/dL (<150)
== END 2023-11-26 03:12 | disposition home or self-care (01) ==
LOC: LBO 03:11
PROVIDERS: PCP Nurse Practitioner; Visit Provider Nurse Practitioner
DX: I10 Essential (primary) hypertension (principal); E78.5 Hyperlipidemia, unspecified
CPT/HCPCS: 36415; 80053; 80061

== ENCOUNTER 2023-12-24 13:44 | Outpatient (CLI) | payer MEDICARE, BC, SELFPAY ==
--- NOTE | 2023-12-24 13:30 | RT.EKG_ITS ---
APPROVED REPORT Exam: Resting ECG Reason for Exam: abnormal ECG at an earlier appointment w Dr Maravilla Patient Location: O HR:64 bpm ECG Measurements Heart Rate 64 AXIS DC 202 P 67 QRSd 102 QRS -15 QT 417 T 47 QTc 431 Conclusion Sinus rhythm...normal P axis, V-rate 50- 99 RSR' in V1 or V2, Left ventricular hypertrophy...multiple voltage criteria
== END 2023-12-24 13:45 | disposition home or self-care (01) ==
LOC: DI.KIM 13:46
PROVIDERS: PCP Nurse Practitioner; Visit Provider Nurse Practitioner
DX: R94.31 Abnormal electrocardiogram [ECG] [EKG] (principal)
CPT/HCPCS: 93010

== ENCOUNTER 2024-01-05 02:28 | Outpatient (CLI) | payer MEDICARE, BC, SELFPAY | END 2024-01-05 02:48 | LOC: DI 02:28 | PROVIDERS: PCP Nurse Practitioner; Visit Provider Nurse Practitioner | DX: R94.31 Abnormal electrocardiogram [ECG] [EKG] (principal); I49.8 Other specified cardiac arrhythmias | CPT/HCPCS: 93306 ==

== ENCOUNTER 2024-10-15 01:08 | Outpatient (CLI) | payer MEDICARE, BC, SELFPAY ==
[2024-10-15 14:08] LABS: Abs Immature Grans 0.02 10^3/uL (0.0-0.06); HCT 41.5 % (40.0-50.0); HGB 13.6 g/dL (13.5-17.5); Immature Grans % 0.3 %; MCH 30.6 pg (27.0-33.0); MCHC 32.8 % (32.0-36.0); MCV 94 fL (80-95); MPV 9.5 fL (8.0-11.0); Platelet Count 200 10^3/uL (130-400); RBC 4.44 10^6/uL (4.36-5.78); RDW 12.8 % (11.8-14.1); RDW-SD 43.8 fL; WBC 6.99 10^3/uL (4.4-10.8)
[2024-10-15 14:11] LABS: Glucose Negative (Negative)
[2024-10-15 14:25] LABS: Hemoglobin A1C 5.2 % (<5.7)
[2024-10-15 15:14] LABS: ALT 28 U/L (16-63); AST 21 U/L (15-37); Albumin 3.7 g/dL (3.4-5.0); Alkaline Phosphatase 79 U/L (46-116); Anion Gap 8.1 mmol/L (3-11); BUN 22 mg/dL (7-18); Bilirubin, Total 0.8 mg/dL (0.2-1.0); CO2 27.9 mmol/L (21.0-32.0); Calcium 9.2 mg/dL (8.5-10.1); Calculated LDL 67 mg/dL (<100); Chloride 104 mmol/L (98-107); Cholesterol 142 mg/dL (<200); Estimated GFR 88.36 (mL/min/1.73m2); Glucose 87 mg/dL (74-106); HDL Cholesterol 55 mg/dL (>or=40); Potassium 4.2 mmol/L (3.5-5.1); Sodium 140 mmol/L (136-145); TSH 1.68 uIU/mL (0.36-3.74); Total Protein 6.8 g/dL (6.4-8.2); Triglyceride 100 mg/dL (<150)
[2024-10-15 22:38] LABS: PSA, Screening 0.7 ng/mL (<=6.5)
== END 2024-10-15 01:09 | disposition home or self-care (01) ==
LOC: LBO 01:09
PROVIDERS: PCP Nurse Practitioner; Visit Provider Family Medicine
DX: R73.09 Other abnormal glucose (principal); Z13.9 Encounter for screening, unspecified; M45.9 Ankylosing spondylitis of unspecified sites in spine; E78.5 Hyperlipidemia, unspecified; R53.83 Other fatigue; N40.0 Benign prostatic hyperplasia without lower urinary tract symptoms
CPT/HCPCS: 36415; 80053; 80061; 84153; 81003; 83036; 84443; 85025